=== PATIENT | female | born 1990 | race African-American/Black ===

== ENCOUNTER 2016-03-31 15:13 | Emergency (ER) | payer MEDICAID, OTHER ==
[~2016-03-31] VITALS: Ht 160 cm; Wt 60.0 kg
[~2016-03-31 15:13] MED LIST: DIFL150T PO; FLAG500T PO
[2016-03-31 15:14] VITALS: BP 128/75; PULSE 95; RESP 18; TEMP 98.7; O2SAT 99
[2016-03-31] MEDS ORDERED: ONDANSETRON ODT 4 MG TAB PO ONE (16:00)
--- NOTE | 2016-03-31 16:02 | PD ---
HPI Chief Complaint: Abdominal Pain Time Seen by Provider: 15:50 Travel History International Travel<30 days: No Contact w/Intl Traveler<30days: No Traveled to known affect area: No History of Present Illness HPI 26-year-old female here with nausea. Symptoms started 2 days ago. She has a decreased appetite because of the nausea. No vomiting. She had some lower abdominal pain but that resolved. She denies diarrhea, constipation, dysuria, vaginal discharge, vaginal bleeding, increased urinary frequency or hesitancy, flank pain. Her last menstrual period was early February. She has no other complaints. [facility] Past Medical History Diminished Hearing: No Immunizations Current: Yes ?: Unknown LMP: FEBRUARY 2016 : 1 Para: 1 Past Surgical History Section: Yes Social History Alcohol Use: No Tobacco Use: No Substance Use: No Allergies-Medications (Allergen,Severity, Reaction): Coded Allergies: No Known Allergies (Verified , 03/31/16) Reported Meds & Prescriptions Reported Meds & Active Scripts Active Plus Iron 29-1 mg ( Vit-Iron Carbonyl) 1 Tab Tab 1 Tab PO DAILY 90 Days Review of Systems Except as stated in HPI: all other systems reviewed are Neg Physical Exam Narrative GENERAL: Well-developed well-nourished female in no acute distress SKIN: Warm and dry. HEAD: Atraumatic. Normocephalic. EYES: Pupils equal and round. No scleral icterus. No injection or drainage. ENT: No nasal bleeding or discharge. Mucous membranes pink and moist. NECK: Trachea midline. No JVD. CARDIOVASCULAR: Regular rate and rhythm. No murmur appreciated. RESPIRATORY: No accessory muscle use. Clear to auscultation. Breath sounds equal bilaterally. GASTROINTESTINAL: Abdomen soft, non-tender, nondistended. Hepatic and splenic margins not palpable. No CVA tenderness MUSCULOSKELETAL: No obvious deformities. No edema. NEUROLOGICAL: Awake and alert. No obvious cranial nerve deficits. Motor grossly within normal limits. Normal speech. PSYCHIATRIC: Appropriate mood and affect; insight and judgment normal. Data Data Last Documented VS Vital Signs Date Time Temp Pulse Resp B/P Pulse Ox O2 Delivery O2 Flow Rate FiO2 03/31/16 15:14 98.7 95 18 128/75 99 Room Air Orders Urinalysis - C+S If Indicated (03/31/16 15:57) Ed Urine Pregnancytest Poc (03/31/16 15:57) Ondansetron Odt (Zofran Odt) (03/31/16 16:00) Labs Laboratory Tests Test 03/31/16 16:45 Urine Color LIGHT-YELLOW Urine Turbidity CLEAR Urine pH 6.0 Urine Specific [place] 1.013 Urine Protein NEG mg/dL Urine Glucose (UA) NEG mg/dL Urine Ketones NEG mg/dL Urine Occult Blood NEG Urine Nitrite NEG Urine Bilirubin NEG Urine Urobilinogen LESS THAN 2.0 MG/DL Urine Leukocyte Esterase TRACE Urine RBC LESS THAN 1 /hpf Urine WBC 1 /hpf Urine Squamous Epithelial 1 /hpf Cells Microscopic Urinalysis Comment CULT NOT INDICATED MDM Medical Decision Making Medical Screen Exam Complete: Yes Emergency Medical Condition: Yes Medical Record Reviewed: Yes Interpretation(s) Positive urine test Urinalysis trace leukocytes otherwise unremarkable Differential Diagnosis Nausea, gastroenteritis, early , UTI, PID, appendicitis, tubo-ovarian abscess Narrative Course 26 year old female with nausea for 2 days. She had some lower abdominal pain which resolved. Her abdomen is soft and nontender at this time. She has no additional symptoms. Physical examination is reassuring. Plan is for Zofran administration, urine test and urinalysis. The patient does have a positive and with a last menstrual period of early February constitutes an early . Actually she has no abdominal pain in her abdomen is soft and nontender, no recent vaginal bleeding. The patient is stable for outpatient follow-up with [facility] for routine care. She' ll be given a prescription for vitamins. Discussed signs and symptoms that would warrant return to the emergency room. Diagnosis Primary Impression: Early stage of Referrals: Chery Son MD [facility] Additional Instructions: Follow-up with an gauge controller such as Dr. Son in the next week to establish care for your early . Avoid tobacco, drug, alcohol use. vitamins. If you develop any acute abdominal pain, vaginal bleeding, return to the emergency room. Med/Other Pt SpecificInfo: Prescription(s) given Scripts Vit-Iron Carbonyl ( Plus Iron 29-1 mg)1 Tab Tab1 Tab PO DAILY 90 Days Ref 0 Prov:Rey Whitman MD 03/31/16 Disposition: 01 DISCHARGE HOME Condition: Stable Usman Wilkinson Mar 31, 2016 16:01
[2016-03-31 17:08] LABS: BLOOD, URINE NEG (NEG); GLUCOSE,URINE NEG (NEG); KETONE, URINE NEG (NEG); NITRITE,URINE NEG (NEG); SQUAMOUS EPITHELIAL CELL URINE 1 /hpf (0-5); URINE COLOR LIGHT-YELLOW (YELLW/STRAW)
[2016-03-31] MEDS ORDERED: PREN29TA PO (17:08)
[2016-03-31 17:11] LABS: COMMENT (UR) CULT NOT INDICATED; CULTURE IF INDICATED CULT NOT INDICATED
[2016-04-30] MEDS ORDERED: METR-1 PO (08:30)
== END 2016-03-31 17:27 | disposition home or self-care (01) ==
LOC: NEPC 15:13
DX: O26.891 Other specified pregnancy related conditions, first trimester (principal); R10.30 Lower abdominal pain, unspecified; Z3A.00 Weeks of gestation of pregnancy not specified
CPT/HCPCS: 81001; 84703; 99283

== ENCOUNTER 2016-09-17 16:47 | Emergency (ER) | payer MEDICAID, OTHER ==
[~2016-09-17 16:47] MED LIST changes: -DIFL150T PO; -FLAG500T PO; +PREN29TA PO
--- NOTE | 2016-09-17 17:28 | PD ---
HPI Chief Complaint High blood pressure while at work Date Seen: Sep 17, 2016 Time Seen: 17:23 Travel History International Travel<30 Days: No Contact w/Intl Traveler<30Days: No Known Affected Area: No History of Present Illness HPI 26-year-old who is at 30 weeks and 1 day comes in because of the high blood pressure taken at work. Patient was asymptomatic and was at work in her job as PHOTOVOLTAIC INSTALLATION TECHNICIAN where her coworkers encourage her to take her blood pressure as her last was affected with elevated pressures that led to an induction and a . Blood pressure work was 142/80. Patient is otherwise asymptomatic has not had any swelling in her blood pressures in her clinic in all been normal. Patient has another appointment on for her regular visit. Last occurred in 2010 with hypertension at term followed by an induction of the for failure to progress Para: 1 : 2 History Past Medical History Medical History: Denies Significant Hx Obstetric History Obstetric History section Past Surgical History Narrative Surgical section Family History Family History: Negative Social History Alcohol Use: No Tobacco Use: No Substance Abuse: No Allergies-Medications (Allergen,Severity, Reaction): Coded Allergies: No Known Allergies (Verified , 09/05/16) Home Meds Active Scripts Vit-Iron Carbonyl ( Plus Iron 29-1 mg)1 Tab Tab1 Tab PO DAILY 90 Days Ref 0 Prov:Rey Whitman MD 03/31/16 Review of Systems Except as stated in HPI: all other systems reviewed are Neg Physical Exam Narrative GENERAL: Well-nourished, well-developed patient. SKIN: Warm and dry. HEAD: Normocephalic and atraumatic. EYES: No scleral icterus. No injection or drainage. ENT: No nasal drainage noted. Mucous membranes pink. Airway patent. NECK: Supple, trachea midline. No JVD. CARDIOVASCULAR: Regular rate and rhythm without murmurs, gallops, or rubs. RESPIRATORY: Breath sounds equal bilaterally. No accessory muscle use. ABDOMEN/GI: Abdomen soft, non-tender, bowel sounds present, no rebound, no guarding Gravid to [-37] weeks size Fundal Height: [-] GENITOURINARY: Deferred External Genitalia: intact and normal in appearance BUS glands: [-] Cervix: [-] Dilatation: [-] Effacement: [-] Station: [-] Presentation: [-] Membranes: [intact or ruptured] Uterine Contractions: [-] FHT's: Category: [-1] Baseline: [-142] Reactive: [Moderate-] Variability: [Moderate-] Decels: [-Absent] EXTREMITIES: No cyanosis or edema. BACK: Nontender without obvious deformity. No CVA tenderness. NEUROLOGICAL: Awake and alert. Motor and sensory grossly within normal limits. Five out of 5 muscle strength in all muscle groups. Normal speech. Data Data Vital Signs Reviewed: Yes [facility] Medical Record Reviewed: Yes Plan 26-year-old who is at 30 weeks and 1 day with elevated blood pressure at work normotensive here Previous section discussed versus repeat section [facility] as already scheduled Diagnosis Diagnosis: Primary Impression: 30 weeks gestation of Additional Impression: Previous section complicating , antepartum condition or complication Disposition: 01 DISCHARGE HOME Pinky Bauer MD Sep 17, 2016 17:27
== END 2016-09-17 17:45 | disposition home or self-care (01) ==
LOC: HOBED 16:47
DX: O34.219 Maternal care for unspecified type scar from previous cesarean delivery (principal); Z3A.30 30 weeks gestation of pregnancy
CPT/HCPCS: 59025

== ENCOUNTER → 2016-11-14 | Outpatient (CLI) | payer OTHER ==
[~2016-11-14] MED LIST changes: +IBUP-232 PO; +MEDR150I IM; +OXYC1TAB63 PO; +SENN1TAB PO
== END ==
LOC: HPND 09:58
PROVIDERS: ATTEND Obstetrics & Gynecology
DX: O26.843 Uterine size-date discrepancy, third trimester (principal); O34.219 Maternal care for unspecified type scar from previous cesarean delivery; Z3A.37 37 weeks gestation of pregnancy
CPT/HCPCS: 76816

== ENCOUNTER 2016-11-19 08:25 | Inpatient (IN) | payer OTHER ==
[~2016-11-19] VITALS: Ht 160 cm; Wt 92.0 kg
[2016-11-19] VITALS (11 sets, daily range): BP systolic 119–147; BP diastolic 59–93; PULSE 85–100; RESP 16–18; TEMP 97.8–99.2; O2SAT 100
[~2016-11-19 08:25] MED LIST changes: -IBUP-232 PO; -MEDR150I IM; -OXYC1TAB63 PO; -SENN1TAB PO
[2016-11-19 09:47] LABS: BASOPHIL # 0.1 TH/MM3 (0-0.2); BASOPHIL % 0.5 % (0.0-2.0); EOSINOPHIL # 0.2 TH/MM3 (0-0.4); EOSINOPHIL % 1.5 % (0.0-4.0); HEMATOCRIT 30.2 % (35.0-46.0); HEMO FLAGS DIFF FINAL; LYMPH % 15.5 % (9.0-44.0); LYMPHOCYTE # 1.9 TH/MM3 (1.0-4.8); MEAN CELL VOLUME 80.9 FL (80.0-100.0); MEAN CORPUSCULAR HEMOGLOBIN 26.8 PG (27.0-34.0); MEAN CORPUSCULAR HGB CONC 33.1 % (32.0-36.0); MONO % 9.6 % (0.0-8.0); NEUT % 72.9 % (16.0-70.0); PLATELET COUNT 271 TH/MM3 (150-450); RED BLOOD COUNT 3.73 MIL/MM3 (4.00-5.30); RED CELL DISTRIBUTION WIDTH 14.8 % (11.6-17.2); WHITE BLOOD COUNT 12.4 TH/MM3 (4.0-11.0)
[2016-11-19 09:58] LABS: BACTERIA, URINE FEW /hpf; BLOOD, URINE NEG (NEG); COMMENT (UR) CULTURE INDICATED; CULTURE IF INDICATED CULTURE INDICATED; GLUCOSE,URINE NEG (NEG); KETONE, URINE NEG (NEG); NITRITE,URINE NEG (NEG); PH, URINE 6.5 (5.0-8.5); SQUAMOUS EPITHELIAL CELL URINE 17 /hpf (0-5); URINE COLOR YELLOW (YELLW/STRAW)
--- NOTE | 2016-11-19 10:16 | HHI.HP ---
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 She is not interested in a / trial of labor. She has no OB complaints or concerns today. She reports that the baby is moving well and she feels well. She denies any LOF or VB. She denies any painful contractions or cramping. Weeks Gestation: 37 Para: 1 : 2 History (Limited) History Past Medical History Narrative Medical Obesity Sickle cell trait Obstetric History Obstetric History Full-term delivery 1 for arrest of dilation; review of the records revealed arrest of dilation at 6 cm Menarche at age 15-16 Menses are irregular Menses last 5 days Review of the records reveals recently diagnosed chlamydia Denies other STDs or abnormal Paps Past Surgical History Narrative Surgical delivery 1 Family History Narrative Family History DM Sickle cell trait Social History Alcohol Use: No Tobacco Use: No Substance Abuse: No Allergies-Medications Allergies-Medications (Allergen,Severity, Reaction): Coded Allergies: No Known Allergies (Verified , 11/05/16) Home Meds Active Scripts Azithromycin Powder Packet (Zithromax Powder Packet) 1 Gm Powderpack, 1 GM PO ONCE for Infection, #1 PKT 0 Refills Mix with water according to packet instructions before use. Prov:Myriam Wheatley 11/05/16 Vit-Iron Carbonyl ( Plus Iron 29-1 mg) 1 Tab Tab, 1 TAB PO DAILY for Nutritional Supplement for 90 Days, TAB 0 Refills Prov:Rey Whitman MD 03/31/16 Discontinued Scripts Azithromycin (Azithromycin) 500 Mg Tab, 500 MG PO DAILY for Infection for 7 Days , #7 TAB 0 Refills Prov:Jayson Grimes MD 11/04/16 Amoxicillin (Amoxicillin) 500 Mg Cap, 500 MG PO TID for Infection for 7 Days, # 21 CAP 0 Refills Prov:Jayson Grimes MD 10/31/16 ROS Review of Systems Except as stated in HPI: all other systems reviewed are Neg Physical Exam Physical Exam Narrative GENERAL: Well-nourished, well-developed patient. SKIN: Warm and dry. HEAD: Normocephalic and atraumatic. EYES: No scleral icterus. No injection or drainage. ENT: No nasal drainage noted. Mucous membranes pink. Airway patent. NECK: Supple, trachea midline. No JVD. CARDIOVASCULAR: Regular rate and rhythm without murmurs, gallops, or rubs. RESPIRATORY: Breath sounds equal bilaterally. No accessory muscle use. BREASTS: Deferred ABDOMEN/GI: Abdomen soft, non-tender, bowel sounds present, no rebound, no guarding Gravid GENITOURINARY: Deferred FHT's: Deferred EXTREMITIES: No cyanosis or edema. BACK: Nontender without obvious deformity. No CVA tenderness. NEUROLOGICAL: Awake and alert. Motor and sensory grossly within normal limits. Five out of 5 muscle strength in all muscle groups. Normal speech. Musculoskeletal: Grossly normal ROM, gait, muscle strength Psychiatric: Grossly normal memory and affect Data Data MDM MDM Narrative Course / MDM Assessment/plan: 1. IUP at 39.3 2. Prior delivery: Discussed option with patient who declined an trial of labor. Discussed risks of delivery which included but are not limited to pain, infection, bleeding, bleeding that may require blood transfusion or hysterectomy, the need for repeat operation, injury to other organs like the bladder bowels nerves or vessels, injury to the baby, wound infection or breakdown, and other possible complications. All of her questions were answered in detail and was scheduled for 39 weeks. 3. well-being: Patient reports good movement, encourage kick counts daily 4. History of chlamydia: Patient recently completed Zithromax, follow-up in office for repeat testing 5. Size greater than dates: Discussed with Ashely De Luna, patient is undergoing ultrasound evaluation in the office which is scheduled with her next appointment 6. Sickle cell trait 7. Follow up with primary OB in 2-3 days or as otherwise scheduled Disposition: Admit Javier Galvan MD, Bill L. II MD Nov 19, 2016 10:16
[2016-11-19] MEDS ORDERED: LACTATED RINGER'S 1000 ML INJ 1,000 ML IV ONE (10:17)
[2016-11-19] MEDS ORDERED: ceFAZolin INJ 1,000 MG VIAL ONE (10:31)
[2016-11-19] MEDS ORDERED: LACTATED RINGER'S 1000 ML INJ 1,000 ML IV SCH ×2 (10:47→16:26)
[2016-11-19] MEDS ORDERED: HYDROmorphone HCL PF 1 MG/ML VIAL IV PUSH PRN (11:30)
[2016-11-19] MEDS ORDERED: ACETAMINOPHEN 325 MG TAB PO PRN (11:30)
[2016-11-19] MEDS ORDERED: SODIUM CHLORIDE 0.9% FLUSH 10 ML FLUSH IV FLUSH PRN (11:30)
[2016-11-19] MEDS ORDERED: OXYTOCIN 30 UNITS-500ML PREMIX 500 ML IV ONE (11:30)
[2016-11-19] MEDS ORDERED: SIMETHICONE 80 MG CHEWABLE TAB PO PRN (11:30)
[2016-11-19] MEDS ORDERED: ONDANSETRON HCL 4 MG/2 ML VIAL IV PUSH PRN (11:30)
[2016-11-19] MEDS ORDERED: KETOROLAC TROMETHAMINE 60 MG/2 ML (IM) VIAL IM PRN (11:30)
--- NOTE | 2016-11-19 11:59 | MP ---
cc: FELIPA GALVAN MD DATE OF SURGERY 11/19/2016 PREOPERATIVE DIAGNOSIS Previous section, now for repeat section at 39 weeks. POSTOPERATIVE DIAGNOSIS Previous section, now for repeat section at 39 weeks. PROCEDURE PERFORMED Repeat low transverse section. SURGEON Felipa Galvan MD ANESTHESIA Spinal. PREOP NOTE The patient is a 26-year-old black female, G2, P1, previous , who requested at term. She is 39 week and is having section today. PROCEDURE The patient was taken to the operating room and placed in the supine position on the operating room table. Adequate spinal anesthesia was administered. She was prepped and draped for abdominal surgery. The previous Pfannenstiel incision was excised out and cast off. The incision was carried to the fascia sharply and the fascia was dissected laterally and off the rectus muscle with Bovie cautery. The peritoneal cavity was entered sharply. The incision was extended superiorly and inferiorly, a bladder blade was placed in the lower edge of the incision. The visceral peritoneum was reflected off the lower uterine segment and placed under bladder blade. A transverse hysterotomy was made and extended bluntly bilaterally, clear fluid noted. A female was delivered at 10:45 a.m., Apgars of 9 and 9, weight 3830 grams. There were no complications. Cord blood obtained, the placenta manually extracted. The uterus was exteriorized. The hysterotomy was closed with a running layer of 0 chromic, followed by imbricating suture of the same. Hemostasis was achieved with a couple of stick ties. The bladder was reapproximated with running layer of 2-0 Vicryl. The uterus was elevated and blood suctioned from the cul-de-sac and gutters. The ovaries and tubes were within normal limits. The uterus was replaced in the peritoneal cavity. The parietal peritoneum was closed with a running layer of 2-0 Vicryl. The rectus muscle was reapproximated with stick ties of chromic and Vicryl. The fascia was closed in a running layer of 0 Vicryl. The subcutaneous tissue was closed in a running 3-0 plain gut suture. The skin was closed with 3-0 Monocryl subcuticular stitch. A seven day silver dressing was placed on without difficulty. The estimated blood loss was 500 cc. There were no complications. Sponge, needle and instrument counts were correct x 2 and the patient went to Recovery in stable condition. MD ROBYN Hart/JAI /11:34 AM /11:49 AM
[2016-11-19] MEDS ORDERED: MORPHINE SULFATE PF 5 MG/10 ML VIAL ONE (12:00)
[2016-11-19] MEDS ORDERED: CITRIC ACID-SODIUM CITRATE LIQ 30 ML UDC PO SCH (12:00)
[2016-11-19] MEDS ORDERED: ceFAZolin INJ 1,000 MG VIAL IV ONE (12:00)
[2016-11-19] MEDS ORDERED: OXYTOCIN 10 UNIT/ML AMP IV ONE (12:00)
[2016-11-19] MEDS ORDERED: ONDANSETRON HCL 4 MG/2 ML VIAL IV PUSH ONE (12:00)
[2016-11-19] MEDS ORDERED: KETOROLAC TROMETHAMINE 30 MG/ML (IVP) VIAL ONE (12:06)
[2016-11-19] MEDS ORDERED: diphenhydrAMINE HCL 50 MG/ML VIAL IM ONE (13:00)
[2016-11-19] MEDS ORDERED: hydrOXYzine HCL 50 MG TAB PO PRN (14:45)
[2016-11-19] MEDS ORDERED: EPIDURAL-NO SYSTEMIC NARCOTICS PRN (14:45)
[2016-11-19] MEDS ORDERED: EPIDURAL-DIPHENHYDRAMINE HCL 50 MG CAP PO PRN (14:45)
[2016-11-19] MEDS ORDERED: EPIDURAL-DIPHENHYDRAMINE HCL 50 MG/ML VIAL IV PUSH PRN (14:45)
[2016-11-19] MEDS ORDERED: EPIDURAL-DO NOT ADMINISTER ANTICOAGULANTS PRN (14:45)
[2016-11-19] MEDS ORDERED: MORPHINE SULFATE PF 5 MG/10 ML VIAL IT ONE (14:45)
[2016-11-19] MEDS ORDERED: EPIDURAL-NALOXONE HCL 0.4 MG/ML AMP IV PUSH PRN (14:45)
[2016-11-19] MEDS: IBUPROFEN 600 MG TAB PO PRN ×2 (17:37→23:59)
[2016-11-19] MEDS ORDERED: SODIUM CHLORIDE 0.9% FLUSH 10 ML FLUSH IV FLUSH SCH (21:00)
[2016-11-19] MEDS ORDERED: OXYTOCIN 30 UNITS-500ML PREMIX 500 ML IV PRN (21:30)
[2016-11-20] VITALS: BP 127/86; PULSE 94; RESP 16; TEMP 98.2
[2016-11-20 04:00] VITALS: BP 121/84; PULSE 89; RESP 16; TEMP 98.8
[2016-11-20 06:06] LABS: AUTOMATED NEUTROPHIL # 14.8 TH/MM3 (1.8-7.7); BASOPHIL # 0.1 TH/MM3 (0-0.2); BASOPHIL % 0.3 % (0.0-2.0); EOSINOPHIL # 0.2 TH/MM3 (0-0.4); EOSINOPHIL % 1.1 % (0.0-4.0); HEMATOCRIT 28.7 % (35.0-46.0); HEMO FLAGS DIFF FINAL; LYMPHOCYTE # 1.5 TH/MM3 (1.0-4.8); MEAN CELL VOLUME 82.1 FL (80.0-100.0); MEAN CORPUSCULAR HEMOGLOBIN 27.3 PG (27.0-34.0); MEAN CORPUSCULAR HGB CONC 33.3 % (32.0-36.0); MONO % 10.5 % (0.0-8.0); NEUT % 80.1 % (16.0-70.0); PLATELET COUNT 243 TH/MM3 (150-450); WHITE BLOOD COUNT 18.5 TH/MM3 (4.0-11.0)
--- NOTE | 2016-11-20 07:45 | HHI.OB ---
Subjective Post Operative Day: 1 Remarks doing well ,no problem , apryl diet , + voiding no BM Objective Vitals/I&O Vital Signs Date Time Temp Pulse Resp B/P (MAP) Pulse Ox O2 Delivery O2 Flow Rate FiO2 11/20/16 04:00 98.8 89 16 121/84 (96) 11/20/16 00:00 98.2 94 16 127/86 (100) 11/19/16 20:20 93 135/91 (106) 11/19/16 20:20 98.9 16 11/19/16 18:36 91 147/84 (105) 11/19/16 16:50 99.2 93 16 140/93 (109) 11/19/16 13:20 98.2 86 18 133/80 (97) 11/19/16 12:35 129/59 (82) 11/19/16 12:28 135/63 (87) 11/19/16 12:26 97.8 87 18 100 11/19/16 12:07 85 18 119/62 (81) 100 11/19/16 11:52 91 18 119/62 (81) 11/19/16 11:52 100 11/19/16 11:36 98.2 11/19/16 11:33 100 18 119/62 (81) 11/19/16 11:33 100 Result Diagram: 11/20/16 0533 Objective Remarks GENERAL: Well-nourished, well-developed patient. CARDIOVASCULAR: Regular rate and rhythm without murmurs, gallops, or rubs. RESPIRATORY: Breath sounds equal bilaterally. No accessory muscle use. ABDOMEN/GI: Abdomen soft, non-tender, bowel sounds present. Incision: Clean, dry and intact.bandage intact& dry Fundus: Firm, non-tender at umbilicus. GENITOURINARY: Light to moderate bleeding. EXTREMITIES: No cyanosis or edema, non-tender, without signs of DVT. Medications and IVs Current Medications Medications (Trade) Dose Ordered Sig/Taylor Route Start Time Stop Time Status Last Admin (Bicitra Liq) 30 ml STUDENT DEAN PO 11/19/16 12:00 11/23/16 11:59 Cefazolin Sodium 1000 mg/Sodium Chloride 100 ml @ 200 mls/hr STUDENT DEAN IV 11/19/16 11:30 11/23/16 11:29 Lactated Ringer's 1,000 ml @ 100 mls/hr Q10H IV 11/19/16 16:26 11/20/16 12:25 11/20/16 02:24 Oxytocin 500 ml @ 100 mls/hr UNSCH X1 PRN IV 11/19/16 21:30 11/20/16 21:29 (NS Flush) 2 ml BID IV FLUSH 11/19/16 21:00 (NS Flush) 2 ml UNSCH PRN IV FLUSH 11/19/16 11:30 (Mylicon Chew) 80 mg QID PRN PO 11/19/16 11:30 (Tylenol) 650 mg Q6H PRN PO 11/19/16 11:30 (Motrin) 600 mg Q6H PRN PO 11/19/16 11:30 11/19/16 23:59 (Toradol Inj) 30 mg Q6H PRN IM 11/19/16 11:30 11/20/16 11:29 11/19/16 12:09 (Percocet 5-325 Mg) 1 tab Q4H PRN PO 11/19/16 11:30 (Percocet 5-325 Mg) 2 tab Q4H PRN PO 11/19/16 11:30 (Hilda-Colace) 2 tab Q12H PRN PO 11/19/16 11:30 (M-M-R Ii Inj) 0.5 ml ONCE ONCE SQ 11/20/16 16:00 11/20/16 16:01 (Boostrix Inj) 0.5 ml ONCE ONCE IM 11/20/16 16:00 11/20/16 16:01 (Zofran Inj) 4 mg Q6H PRN IV PUSH 11/19/16 11:30 (Dilaudid Pf Inj) 1 mg Q4H PRN IV PUSH 11/19/16 11:30 (Flu (Quadrivalent) Vaccine Inj) 0.5 ml ONCE ONCE IM 11/20/16 10:00 11/20/16 10:01 (Atarax) 50 mg QID PRN PO 11/19/16 14:45 Miscellaneous Information NO SYSTEMIC NARCOTICS TO BE GIVEN FO... UNSCH PRN .XX 11/19/16 14:45 11/20/16 14:44 (Narcan Inj) 0.4 mg UNSCH PRN IV PUSH 11/19/16 14:45 11/20/16 14:44 (Benadryl Inj) 25 mg Q6H PRN IV PUSH 11/19/16 14:45 11/20/16 14:44 11/20/16 00:08 (Benadryl) 50 mg Q6H PRN PO 11/19/16 14:45 11/20/16 14:44 Miscellaneous Information ALL NURSING DEPARTMENTS UNSCH PRN .XX 11/19/16 14:45 11/20/16 14:44 Assessment/Plan Assessment and Plan POD 1 AFVSS doing well post C/S making normal progress cont to advance care Javier Galvan II, MD Nov 20, 2016 07:45
[2016-11-20 08:10] VITALS: BP 155/92; PULSE 91; RESP 16; TEMP 99
[2016-11-20] MEDS: oxyCODONE/ACETAMINOPHEN 5 MG/325 MG TAB PO PRN ×3 (09:05→21:36)
[2016-11-20] MEDS: DOCUSATE SODIUM 50 MG/SENNA 8.6 MG TAB PO PRN (09:05)
[2016-11-20] MEDS: IBUPROFEN 600 MG TAB PO PRN ×3 (09:05→21:36)
[2016-11-20] MEDS ORDERED: INFLUENZA VIRUS VACCINE (QUADRIVALENT) 0.5 ML SYR IM ONE (10:00)
[2016-11-20 12:29] VITALS: BP 127/97; TEMP 98.2
[2016-11-20 14:46] VITALS: BP 131/69
[2016-11-20] MEDS ORDERED: DIPHTH/TETANUS/ACEL PERTUSSIS (BOOSTER) 0.5 ML VIAL/PFS IM ONE (16:00)
[2016-11-20] MEDS ORDERED: MEASLES, MUMPS, RUBELLA VACCINE 0.5 ML VIAL SQ ONE (16:00)
[2016-11-20 21:38] VITALS: BP 143/83; PULSE 97; RESP 18; TEMP 98.8
[2016-11-21] MEDS: DOCUSATE SODIUM 50 MG/SENNA 8.6 MG TAB PO PRN (03:28)
[2016-11-21] MEDS: IBUPROFEN 600 MG TAB PO PRN ×2 (03:28→10:27)
[2016-11-21] MEDS: oxyCODONE/ACETAMINOPHEN 5 MG/325 MG TAB PO PRN ×2 (03:28→10:27)
[2016-11-21 08:30] VITALS: BP 129/82; PULSE 84; RESP 18; TEMP 98
--- NOTE | 2016-11-21 08:55 | HHI.OB ---
Subjective Post Operative Day: 2 Remarks Postoperative day number 2. AFVSS overnight. Pain well-controlled. Incision not draining. Decreased lochia. Denies dysuria. No breast tenderness. She is feeding the baby via breast. Appetite good. No nausea or vomiting. Endorses flatus. Endorses bowel movement. Ambulating well. Denies calf pain, shortness of breath, or cough. Otherwise, she is doing well this morning and has no other complaints. (Francisco Cavazos MD, R2) Objective Vitals/I&O Vital Signs Date Time Temp Pulse Resp B/P (MAP) Pulse Ox O2 Delivery O2 Flow Rate FiO2 11/20/16 22:36 16 11/20/16 22:36 16 11/20/16 21:38 97 18 143/83 (103) 11/20/16 21:38 98.8 11/20/16 14:46 131/69 (89) 11/20/16 12:29 98.2 127/97 (107) (Francisco Cavazos MD, R2) Result Diagram: 11/20/16 0533 Objective Remarks GENERAL: Well-nourished, well-developed patient. CARDIOVASCULAR: Regular rate and rhythm without murmurs, gallops, or rubs. RESPIRATORY: Breath sounds equal bilaterally. No accessory muscle use. ABDOMEN/GI: Abdomen soft, non-tender, bowel sounds present. Incision: Clean, dry and intact.bandage intact& dry Fundus: Firm, non-tender at umbilicus. GENITOURINARY: Light to moderate bleeding. EXTREMITIES: No cyanosis or edema, non-tender, without signs of DVT. Medications and IVs Current Medications Medications (Trade) Dose Ordered Sig/Taylor Route Start Time Stop Time Status Last Admin (Bicitra Liq) 30 ml ENGRAVER [employer]ATWARE PO 11/19/16 12:00 11/23/16 11:59 Cefazolin Sodium 1000 mg/Sodium Chloride 100 ml @ 200 mls/hr [facility]RAVER [employer]WARE IV 11/19/16 11:30 11/23/16 11:29 (NS Flush) 2 ml BID IV FLUSH 11/19/16 21:00 (NS Flush) 2 ml UNSCH PRN IV FLUSH 11/19/16 11:30 (Mylicon Chew) 80 mg QID PRN PO 11/19/16 11:30 (Tylenol) 650 mg Q6H PRN PO 11/19/16 11:30 (Motrin) 600 mg Q6H PRN PO 11/19/16 11:30 11/21/16 03:28 (Percocet 5-325 Mg) 1 tab Q4H PRN PO 11/19/16 11:30 11/20/16 21:36 (Percocet 5-325 Mg) 2 tab Q4H PRN PO 11/19/16 11:30 11/21/16 03:28 (Hilda-Colace) 2 tab Q12H PRN PO 11/19/16 11:30 11/21/16 03:28 (Zofran Inj) 4 mg Q6H PRN IV PUSH 11/19/16 11:30 (Dilaudid Pf Inj) 1 mg Q4H PRN IV PUSH 11/19/16 11:30 (Atarax) 50 mg QID PRN PO 11/19/16 14:45 (Francisco Cavazos MD, R2) Assessment/Plan Assessment and Plan 26y/o female who is POD#2 s/p CXN. -Continue routine care. -Percocet and Motrin PRN pain. -Encouraged OOB. Advised pelvic rest for 6 wks. Will need a f/u appt. in 1 wk for incision check. -Re: ctrl, she is undecided -D/c today/tomorrow dw OB attending (Francisco Cavazos MD, R2) Attending Attestation POD #2 s/p c/s doing well desires d/c home PP precautions One week incision check patient seen and examined. d/w Dr. Cavazos and Dr. Palafox (Bisi Pa MD) Francisco Cavazos MD, R2 Nov 21, 2016 08:55 Bisi Pa MD Nov 21, 2016 09:18
--- NOTE | 2016-11-21 08:56 | HHI.DCPOC ---
Discharge Care Plan Diagnosis: (1) care following delivery Report Symptoms to Your Doctor -Temperature above 100.5 degrees -Redness, of incision or excessive or foul smelling drainage -Unusual pain or calf pain -Increased vaginal bleeding -Painful or difficulty urinating -Feelings of extreme sadness or anxiety after 2 weeks Goals to Promote Your Health * To prevent worsening of your condition and complications * To maintain your health at the optimal level Directions to Meet Your Goals Take your medications as prescribed Follow your dietary instruction Follow activity as directed Ensure plenty of rest for recovery Drink fluids for hydration Keep your appointments as scheduled Take your immunizations and boosters as scheduled If your symptoms worsen call your PCP, if no PCP go to Urgent Care Center or Emergency Room Smoking is Dangerous to Your Health. Avoid second hand smoke Call the 24-hour crisis hotline for domestic abuse at Francisco Cavazos MD, R2 Nov 21, 2016 08:56 Bisi Pa MD Nov 21, 2016 09:17
[2016-11-21] MEDS ORDERED: IBUP-232 PO (08:57)
[2016-11-21] MEDS ORDERED: SENN1TAB PO (08:57)
[2016-11-21] MEDS ORDERED: OXYC1TAB63 PO (08:57)
[2016-11-27] MEDS ORDERED: MEDR150I IM (11:49)
== END 2016-11-21 14:50 | disposition home or self-care (01) | DRG 765 ==
LOC: H2EB 08:25 → H1EA 12:44
PROVIDERS: ADMIT Obstetrics & Gynecology Maternal & Fetal Medicine; ATTEND Obstetrics & Gynecology Maternal & Fetal Medicine
PROC: 10D00Z1 Extraction of Products of Conception, Low, Open Approach (ICD-10-PCS; principal; 2016-11-19)
DX: O34.211 Maternal care for low transverse scar from previous cesarean delivery (principal); O98.813 Other maternal infectious and parasitic diseases complicating pregnancy, third trimester; E66.9 Obesity, unspecified; Z68.35 Body mass index [BMI] 35.0-35.9, adult; D57.3 Sickle-cell trait; Z37.0 Single live birth; Z3A.39 39 weeks gestation of pregnancy; Z23 Encounter for immunization
CPT/HCPCS: 59025; 81001; 85025; 86850; 86900; 86901; 87086; 90686; 90715; J0690; J1200; J1885; J2274; J2405; J2590; J7120; Q2038